=== PATIENT | female | born 1960 | race Caucasian/White ===

== ENCOUNTER 2020-08-31 15:45 | Outpatient (REF) | payer OTHER, SELFPAY | END 2020-08-31 15:46 | disposition home or self-care (01) | LOC: HO.LAB 15:45 | PROVIDERS: Visit Provider Internal Medicine | DX: Z20.828 Contact with and (suspected) exposure to other viral communicable diseases (principal) | CPT/HCPCS: C9803; U0003 ==

== ENCOUNTER 2020-11-26 09:14 | Outpatient (REF) | payer OTHER, SELFPAY | END 2020-11-26 09:15 | disposition home or self-care (01) | LOC: HO.LAB 09:14 | PROVIDERS: Visit Provider Internal Medicine | DX: Z20.822 Contact with and (suspected) exposure to COVID-19 (principal) | CPT/HCPCS: 36415; C9803; U0003; U0005 ==

== ENCOUNTER 2021-05-14 08:10 | Observation (INO) | payer OTHER, SELFPAY ==
[2021-05-14] VITALS (15 sets, daily range): BP systolic 101–120; BP diastolic 54–71; PULSE 60–83; RESP 15–20; TEMP 36.2–37.3; O2SAT 95–100; BMI 19.5
--- NOTE | ~2021-05-14 | CT_ITS ---
EXAMINATION: CT ABDOMEN AND PELVIS WITH CONTRAST CLINICAL INFORMATION: Right lower quadrant pain, nausea, vomiting. COMPARISON: CTA chest 01/21/2019. TECHNIQUE: Multidetector volumetric images were obtained from the superior aspect of the liver through the pubic symphysis following administration 85 mL of Omnipaque 350 intravenous contrast. Sagittal and coronal reformatted images were obtained on the technologist's workstation. Oral contrast: No This CT examination was performed using dose optimization techniques as appropriate, variously including the following: *Automated exposure control *Adjustment of mA and/or kV according to patient size (this includes techniques or standardized protocols for targeted exams where dose is matched to indication/reason for exam; i.e. extremities or head) *Use of iterative reconstruction technique DLP: 376 mGy-cm FINDINGS: LUNG BASES: The visualized lung bases are unremarkable. LIVER, GALLBLADDER, AND BILIARY TREE: The liver is normal in size, shape, and attenuation. No focal hepatic lesion or biliary ductal dilatation is present. The gallbladder is unremarkable with no evidence of radiopaque gallstones, gallbladder wall thickening, or obvious pericholecystic inflammatory changes. PANCREAS: There is mild fullness of the pancreatic duct, measuring 3-4 mm. The pancreas is normal in size and contour and attenuation. There is no mass or pseudocyst or peripancreatic inflammatory changes. SPLEEN: Unremarkable. ADRENAL GLANDS: Unremarkable. KIDNEYS AND URETERS: The kidneys are normal in size and smooth in contour and enhance symmetrically. There is mild bilateral fullness renal collecting system but no caliectasis or hydroureter or perinephric stranding. No visible calculi. BLADDER: Unremarkable. GASTROINTESTINAL TRACT: The appendix is distended to 1.2 cm in diameter. There is fluid in the lumen and some intraluminal high attenuation material, possibly appendicoliths. There is mild induration in the adjacent mesentery. Findings are consistent with acute appendicitis. There is no pneumatosis or free air. No ascites or fluid collection. Moderate stool is seen throughout the colon. There is no proximal obstruction. ABDOMINAL WALL: Tiny fat-containing umbilical hernia, under 2 cm. Small right inguinal hernia, 1.4 cm diameter by 4.5 cm in length. LYMPH NODES: No lymphadenopathy. VASCULAR: Unremarkable. PELVIC VISCERA: Enlarged uterus with scattered fibroids, largest 8 cm with thick circumferential peripheral calcification. Smaller fibroids anteriorly under 3 millimeters cm. OSSEOUS STRUCTURES: Pectus excavatum. No acute bony abnormality. Results are called and discussed with MARY Lundberg in the Emergency Department at [address]/CT abdomen pelvis w con IMPRESSION: 1. Acute appendicitis. No fluid collection or proximal obstruction. 2. Uterine fibroids, largest 8 cm with thick circumferential peripheral calcification. 3. Small fat-containing umbilical and right inguinal hernias. 4. Mild fullness pancreatic duct 3-4 mm. No visible mass or peripancreatic inflammatory changes. 5. Pectus excavatum.
--- NOTE | 2021-05-14 09:23 | ED.ABDPAIN ---
HPI - Abdominal Pain General Chief Complaint: Abdominal Pain Stated Complaint: abd pain Time Seen by Provider: 05/14/21 08:56 Source: patient Mode of arrival: ambulatory Limitations: no limitations History of Present Illness HPI narrative: 60-year-old female who reports that she suffers from constipation denies any other medical history presenting to the ED with complaints of right lower quadrant/suprapubic abdominal pain with associated nausea vomiting where she has had 2 episodes of emesis this morning. Her last bowel movement was 2 days ago and she reports there were small hard rocks. She denies any fevers, chills, dizziness, headaches, neck pain/stiffness, sore throat, chest pain, shortness of breath, cough, palpitations, black or bloody stools, dysuria, hematuria, radiation of the abdominal pain, diarrhea, recent travel, sick contacts or possible bad food exposure or any other symptoms complaints or concerns at this time. MD elicited complaint: abdominal pain Pertinent past history: constipation Onset (ago): day(s) (Since last night) Pain Consistency: constant Location: RLQ and suprapubic Severity: moderate Quality: aching Radiation: none Migration to: no migration Exacerbating factors: nothing Relieving factors: nothing Associated symptoms: nausea and vomiting Related Data Home Medications Medication Instructions Recorded Confirmed multivitamin-ferrous 1 tab PO DAILY 05/14/21 05/14/21 fumarate-folic acid 18 mg-400 mcg tablet (Centrum Women) psyllium husk 0.4 gram capsule 1.2 g PO DAILY 05/14/21 05/14/21 (Fiber (psyllium husk)) Allergies Allergy/AdvReac Type Severity Reaction Status Date / Time amoxicillin [AMOXICILLIN] Allergy Unknown RASH/SWELLI Verified 05/14/21 12:43 NG morphine [MORPHINE] AdvReac Severe DIZZINESS,N Verified 05/14/21 12:43 AUSEA Review of Systems Review of Systems Constitutional : No Weight loss, No Fever, No Chills, No Night Sweats, No Fatigue, NoMalaise ENT/Mouth: No ear pain, No sore throat, No Difficulty swallowing Cardiovascular : No Chest Pain, No SOB, No Dyspnea on Exertion, No Orthopnea, NoEdema, No Palpitations Respiratory : No Cough, No Sputum, No Wheezing, No Dyspnea Gastrointestinal : Positive nausea/vomiting with right lower quadrant abdominal pain/suprapubic abdominal pain and constipation, No Diarrhea, No blood streaked emesis, No coffee-ground emesis, No gross hematemesis, No blood streak stool, No gross hematochezia, No Melena Genitourinary : No irregular bleeding, No Dysuria, No Urinary Frequency, No Hematuria,No Urinary Incontinence, No Urgency, No Flank Pain Musculoskeletal : No joint pain, No Myalgias, No Joint Swelling Skin : No Skin Lesions, No rash Neuro : No Weakness, No Numbness, No Paresthesias, No Loss of Consciousness, NoDizziness, No Headache Psych : No Social Issues, Heme/Lymph: No Bruising, No Bleeding,No Lymphadenopathy Endocrine : No Polyuria, No Polydipsia, No Temperature Intolerance Yes all other systems are reviewed and are negative Physical Exam Vital Signs: Vital Signs: Last Vital Signs Temp 98.5 F 05/14/21 11:21 Pulse 69 05/14/21 11:21 Resp 18 05/14/21 11:21 BP 119/71 05/14/21 11:21 Pulse Ox 97 05/14/21 11:21 Body Mass Index 19.5 vital signs have been reviewed as normal and appeared to be correct. Blood pressure normal. Heart rate normal. Respiration rate normal. Temperature normal. Oxygen saturation normal. Appearance: Alert. Oriented X3. No acute distress. Head: Normal external exam. Normocephalic. Eyes: PERRLA. EOMI. Conjunctiva and sclera normal. Eyelids normal. ENT: Pharynx normal. Uvula midline. Moist mucous membranes. Neck: Normal inspection. Neck supple. FROM. No adenopathy. No meningeal signs. CVS: Normal heart rate and rhythm. Heart sound normal. No murmurs noted. Pulses normal throughout. Respiratory: No respiratory distress. Painless inspiration. Breath sounds normal. No wheezes/rales/rhonchi noted. Chest nontender. No accessory muscle usage noted or decreased air movement noted. Abdomen: Soft and moderate tenderness diffusely although point tenderness to right lower quadrant with guarding. Nondistended. No rigidity. Bowel sounds normal in all 4 quadrants. No distention noted. No organomegaly noted. No visible injury noted. Positive rebound tenderness. Positive Rovsing sign/obturator's sign/psoas sign. Negative Avendaño sign. Back: No CVA tenderness. Full range of motion noted. Skin: Skin warm and dry. Normal skin color. Normal skin turgor. No rashes/lesions/lacerations noted. Extremities: Extremities exhibit normal range of motion. Extremities nontender. Neuro: Oriented X 3. No motor deficit. No sensory deficit. Reflexes normal. Normal steady gait. Course Course Course Narrative: 9am - 60-year-old female who reports that she suffers from constipation denies any other medical history presenting to the ED with complaints of right lower quadrant/suprapubic abdominal pain with associated nausea vomiting where she has had 2 episodes of emesis this morning. Her last bowel movement was 2 days ago and she reports there were small hard rocks. Plan: Labs, UA, CT scan abdomen pelvis with IV contrast to evaluate for possible appendicitis versus constipation or any other acute intra-abdominal process, provide a L of IV fluids and 4 mg of Zofran. Patient declined any pain meds at this time. Then re-evaluate. Reevaluation(s) Reevaluation #1: - labs reviewed patient with an elevated white blood cell count 53596. Random glucose 119. Otherwise all other labs are within normal limits. - CT scan abdomen and pelvis revealed acute appendicitis. Nonacute findings include uterine fibroids 8 cm that the patient was aware of. Small hernia in the umbilical and inguinal area and pancreatic duct appears full no mass or changes noted. - therefore at this time I sent [facility] EMR to Dr. Mary and received not reply that he is currently in the OR - therefore will start the patient on 750 mg of Levaquin and 500 mg of Flagyl then wait to admit for acute appendicitis. Patient understands agrees this plan. Time: 10:56 MDM - Abdominal Pain Medical Records Attestation: I reviewed the patient's medical records. Lab Data Attestation: I reviewed the patient's lab results. Result diagrams: 05/14/21 09:26 05/14/21 09:26 Labs: Lab Results 05/14/21 05/14/21 05/14/21 Range/Units 09:26 09:26 09:26 WBC 11.4 H (4.8-10.8) X10*3/uL RBC 4.20 (4.20-5.50) X10*6/uL Hgb 12.7 (12.0-16.0) g/dl Hct 37.6 (37-47) % MCV 89.5 (80-98) fL MCH 30.2 (27.0-33.0) pg MCHC 33.8 (31.0-35.0) g/dl RDW 12.5 (11.0-16.0) % Plt Count 216 (160-400) X10*3/uL MPV 9.2 L (9.4-12.3) fL Immature Gran % (Auto) 0.4 (0.0-0.4) % Neut % (Auto) 89.1 H (45-73) % Lymph % (Auto) 6.4 L (20-40) % [place] % (Auto) 3.8 (2-11) % Eos % (Auto) 0.1 (0-4) % Baso % (Auto) 0.2 (0-2) % Lymph # (Auto) 0.7 L (1.2-4.9) X10*3/uL [place] # (Auto) 0.4 (0.1-1.2) X10*3/uL Eos # (Auto) 0.0 (0.0-0.4) X10*3/uL Baso # (Auto) 0.0 (0.0-0.2) X10*3/uL Abs Immat Gran (auto) 0.05 H (0.00-0.03) X10*3/uL Absolute Neuts (auto) 10.2 H (2.0-8.3) X10*3/uL Absolute Nucleated RBC 0.000 (0.0-0.012) X10*3/uL Nucleated RBC % (auto) 0.0 (0.0-0.2) /100WBC PT 11.6 (9.9-13.0) SEC INR 1.0 (0.9-1.1) Sodium 139 (135-145) mmol/L Potassium 4.0 (3.3-5.1) mmol/L Chloride 107 (96-108) mmol/L Carbon Dioxide 24 (22-29) mmol/L Anion Gap 12 (12-20) BUN 14 (9-16) mg/dL Creatinine 0.63 (0.5-1.4) mg/dL Estim Creat Clear Calc 84.9 Estimated GFR > 60 Random Glucose 119 H (60-115) mg/dL Calcium 9.3 (8.4-10.2) mg/dL Magnesium 2.1 (1.6-2.6) mg/dL Total Bilirubin 0.8 (0.0-1.0) mg/dL AST 14 (5-31) U/L ALT 14 (0-31) U/L Alkaline Phosphatase 73 (39-117) U/L Total Protein 6.6 (6.5-8.0) g/dL Albumin 4.3 (3.5-5.0) g/dL Lipase 11 (8-78) U/L Coronavirus (PCR) (Negative) Influenza Type A (PCR) (Negative) Influenza Type B (PCR) (Negative) RSV RNA Qual (PCR) (Negative) 05/14/21 Range/Units 09:38 WBC (4.8-10.8) X10*3/uL RBC (4.20-5.50) X10*6/uL Hgb (12.0-16.0) g/dl Hct (37-47) % MCV (80-98) fL MCH (27.0-33.0) pg MCHC (31.0-35.0) g/dl RDW (11.0-16.0) % Plt Count (160-400) X10*3/uL MPV (9.4-12.3) fL Immature Gran % (Auto) (0.0-0.4) % Neut % (Auto) (45-73) % Lymph % (Auto) (20-40) % [place] % (Auto) (2-11) % Eos % (Auto) (0-4) % Baso % (Auto) (0-2) % Lymph # (Auto) (1.2-4.9) X10*3/uL [place] # (Auto) (0.1-1.2) X10*3/uL Eos # (Auto) (0.0-0.4) X10*3/uL Baso # (Auto) (0.0-0.2) X10*3/uL Abs Immat Gran (auto) (0.00-0.03) X10*3/uL Absolute Neuts (auto) (2.0-8.3) X10*3/uL Absolute Nucleated RBC (0.0-0.012) X10*3/uL Nucleated RBC % (auto) (0.0-0.2) /100WBC PT (9.9-13.0) SEC INR (0.9-1.1) Sodium (135-145) mmol/L Potassium (3.3-5.1) mmol/L Chloride (96-108) mmol/L Carbon Dioxide (22-29) mmol/L Anion Gap (12-20) BUN (9-16) mg/dL Creatinine (0.5-1.4) mg/dL Estim Creat Clear Calc Estimated GFR Random Glucose (60-115) mg/dL Calcium (8.4-10.2) mg/dL Magnesium (1.6-2.6) mg/dL Total Bilirubin (0.0-1.0) mg/dL AST (5-31) U/L ALT (0-31) U/L Alkaline Phosphatase (39-117) U/L Total Protein (6.5-8.0) g/dL Albumin (3.5-5.0) g/dL Lipase (8-78) U/L Coronavirus (PCR) NEGATIVE (Negative) Influenza Type A (PCR) NEGATIVE (Negative) Influenza Type B (PCR) NEGATIVE (Negative) RSV RNA Qual (PCR) NEGATIVE (Negative) Imaging Data CT scan abdomen pelvis with IV contrast: Attestation: I personally reviewed and interpreted this imaging study as follows: Radiologist's impression: FINDINGS: LUNG BASES: The visualized lung bases are unremarkable.? LIVER, GALLBLADDER, AND BILIARY TREE: The liver is normal in size, shape, and attenuation. No focal hepatic lesion or biliary ductal dilatation is present. The gallbladder is unremarkable with no evidence of radiopaque gallstones, gallbladder wall thickening, or obvious pericholecystic inflammatory changes.? PANCREAS: There is mild fullness of the pancreatic duct, measuring 3-4 mm. The pancreas is normal in size and contour and attenuation. There is no mass or pseudocyst or peripancreatic inflammatory changes.? SPLEEN: Unremarkable.? ADRENAL GLANDS: Unremarkable.? KIDNEYS AND URETERS: The kidneys are normal in size and smooth in contour and enhance symmetrically. There is mild bilateral fullness renal collecting system but no caliectasis or hydroureter or perinephric stranding. No visible calculi.? BLADDER: Unremarkable.? GASTROINTESTINAL TRACT: The appendix is distended to 1.2 cm in diameter. There is fluid in the lumen and some intraluminal high attenuation material, possibly appendicoliths. There is mild induration in the adjacent mesentery. Findings are consistent with acute appendicitis. There is no pneumatosis or free air. No ascites or fluid collection. Moderate stool is seen throughout the colon. There is no proximal obstruction.? ABDOMINAL WALL: Tiny fat-containing umbilical hernia, under 2 cm. Small right inguinal hernia, 1.4 cm diameter by 4.5 cm in length.? LYMPH NODES: No lymphadenopathy. VASCULAR: Unremarkable. PELVIC VISCERA: Enlarged uterus with scattered fibroids, largest 8 cm with thick circumferential peripheral calcification. Smaller fibroids anteriorly under 3 millimeters cm.? OSSEOUS STRUCTURES: Pectus excavatum. No acute bony abnormality. Results are called and discussed with MARY Lundberg in the Emergency Department at 1049 hours.? CT/CT abdomen pelvis w con IMPRESSION: 1. Acute appendicitis. No fluid collection or proximal obstruction. 2. Uterine fibroids, largest 8 cm with thick circumferential peripheral calcification. 3. Small fat-containing umbilical and right inguinal hernias. 4. Mild fullness pancreatic duct 3-4 mm. No visible mass or peripancreatic inflammatory changes. 5. Pectus excavatum. Critical Care Time Critical Care Time Critical Care Time: Yes Total Critical Care Time: 60 Attestation: I personally attest to this time spent taking care of the patient Discharge Plan Discharge Clinical Impression: Acute appendicitis, Fibroid, uterine, Hernia, umbilical, Inguinal hernia, Pectus excavatum Patient Disposition: Admitted As Inpatient Interventions: Admission Worksheet (ED) Last Done: 05/14/21 12:36 [facility] Past Medical History Attestation statement: The following information was validated with the patient. Medical History (Updated 05/14/21 @ 11:35 by MARY Lundberg) Encounter for colonoscopy following colon polyp removal Normal colonoscopy Surgical History (Updated 05/14/21 @ 12:22 by Hamilton Mary MD) History of colon resection Social History Social History Alcohol intake: never Patient Tobacco Use Status: Never used Tobacco Use of substances other than those prescribed or required for medical reasons: No Advance Directives: No Advance Directives Information Provided: No Patient : No
[2021-05-14 09:30] LABS: MANUAL DIFF FLAG NO
[2021-05-14] MEDS: 0.9 % Sodium Chloride 1,000 ML 999 ML IVCONT (09:30)
[2021-05-14] MEDS: ondansetron HCL 4 MG/2 ML VIAL IVPUSH ×2 (09:30→11:03)
[2021-05-14 09:35] LABS: Basophils Percent Auto 0.2 % (0-2); Eosinophils Percent Auto 0.1 % (0-4); Hematocrit 37.6 % (37-47); Hemoglobin 12.7 g/dl (12.0-16.0); Imm Gran Abs Auto 0.05 X10*3/uL (0.00-0.03); Imm Gran Pct Auto 0.4 % (0.0-0.4); Lymphocytes Absolute Auto 0.7 X10*3/uL (1.2-4.9); Lymphocytes Percent Auto 6.4 % (20-40); Mean Corpuscular HGB Conc 33.8 g/dl (31.0-35.0); Mean Corpuscular Hemoglobin 30.2 pg (27.0-33.0); Mean Corpuscular Volume 89.5 fL (80-98); Mean Platelet Volume 9.2 fL (9.4-12.3); Monocytes Absolute Auto 0.4 X10*3/uL (0.1-1.2); Monocytes Percent Auto 3.8 % (2-11); Neutrophils Absolute Auto 10.2 X10*3/uL (2.0-8.3); Neutrophils Percent Auto 89.1 % (45-73); Platelet Count 216 X10*3/uL (160-400); Red Cell Distribution Width 12.5 % (11.0-16.0); White Blood Count 11.4 X10*3/uL (4.8-10.8)
[2021-05-14 09:38] LABS: Prothrombin Time 11.6 SEC (9.9-13.0)
[2021-05-14 10:02] LABS: Alanine Aminotransferase 14 U/L (0-31); Albumin Level 4.3 g/dL (3.5-5.0); Alkaline Phosphatase 73 U/L (39-117); Anion Gap 12 (12-20); Aspartate Amino Transferase 14 U/L (5-31); Bilirubin Total 0.8 mg/dL (0.0-1.0); Blood Urea Nitrogen 14 mg/dL (9-16); Calcium 9.3 mg/dL (8.4-10.2); Carbon Dioxide 24 mmol/L (22-29); Chloride 107 mmol/L (96-108); Creatinine Clr Calc Pharmacy 84.9; Estimated Glomerular Filt Rate > 60; Glucose Random 119 mg/dL (60-115); Lipase 11 U/L (8-78); Magnesium 2.1 mg/dL (1.6-2.6); Sodium 139 mmol/L (135-145); Total Protein 6.6 g/dL (6.5-8.0)
[2021-05-14] MEDS: iohexoL 350 MG/ML 100 ML INFUS..BTL IV (10:26)
[2021-05-14 10:35] LABS: Influenza A PCR NEGATIVE (Negative); Influenza B PCR NEGATIVE (Negative); Resp Syncy Virus RNA Qual PCR NEGATIVE (Negative); SARS COV2 PCR INHOUSE NEGATIVE (Negative)
[2021-05-14] MEDS: HYDROmorphone HCl 0.5 MG/0.5 ML SYRINGE IVPUSH (11:03)
[2021-05-14] MEDS: levoFLOXacin/D5W 750 MG/150 ML PIGGYBACK 100 MG IV (11:17)
--- NOTE | 2021-05-14 11:21 | PHA.MEDREC ---
Pharmacy Consult ? Medication Reconciliation Pharmacy has completed the medication reconciliation. Patient states that she doesn't take any prescription medications. She only takes tylenol PM occasionally, while taking Centrum and 3 Fiber capsules daily. Esthela Maldonado, PharmD [phone]
--- NOTE | 2021-05-14 12:20 | P.HPGS_ITS ---
History of Present Illness History of Present Illness Date of Service: 05/15/21 Chief complaint: Acute appendicitis Narrative: Atiya Choe is a 60 year old female who came to the emergency room this morning because of abdominal pain. She said this started about very early this morning after midnight. This started as low intensity. But persisted and seemed to have worsened. She therefore came to the emergency room. She says the pain was initially mostly on the area around the umbilicus but now has been on the right lower quadrant. She describes a little bit of nausea. She says she had some diffuse abdominal pain about 3 weeks ago as well which lasted for about 2-3 hours but had resolved with a bowel movement. She also had some colon resection likely the sigmoid, about 3 years ago in [place], for what she described as a large polyp which was not a cancer. She says she continues to have some pain now on the right lower quadrant. Review of Systems Constitutional: Constitutional: Denies chills and Denies fever(s) Cardiovascular: Cardiovascular: Denies chest pain, Denies dyspnea and Denies dyspnea on exertion Respiratory: Respiratory: Denies cough, Denies dyspnea and Denies dyspnea on exertion Gastrointestinal: Gastrointestinal: Reports abdominal pain, Denies hematochezia and Denies change in bowel habits Genitourinary: Genitourinary: Denies hematuria Musculoskeletal: Musculoskeletal: Denies back pain and Denies limited range of motion Neurologic: Denies focal weakness and Denies convulsions Psychiatric: Psychiatric: Denies depression and Denies mood swings PMFSH Past Medical History Medical History (Updated 05/14/21 @ 11:35 by MARY Lundberg) Encounter for colonoscopy following colon polyp removal Normal colonoscopy Surgical History Surgical History (Updated 05/14/21 @ 12:22 by Hamilton Mary MD) History of colon resection Social History Social History Household Members: Spouse Housing: House Do you presently have visiting nurse or other home services: No Alcohol intake: never Patient Tobacco Use Status: Former Tobacco user Quit Date: 2010 Tobacco use type: Cigarette Second Hand Smoke Exposure: No Substance Use Type: Marijuana service: No Current occupational status: employed Meds Allergies Allergy/AdvReac Type Severity Reaction Status Date / Time amoxicillin [AMOXICILLIN] Allergy Unknown RASH/SWELLI Verified 05/14/21 12:43 NG morphine [MORPHINE] AdvReac Severe DIZZINESS,N Verified 05/14/21 12:43 AUSEA Active Medications: Current Medications Generic Name Dose Route Start Last Admin Trade Name Maykel PRN Reason Stop Dose Admin Levofloxacin 750 mg in 150 mls @ 100 mls/hr 05/14/21 10:55 05/14/21 11:17 Levaquin IV 05/14/21 12:24 100 mls/hr ONCE ONE Administration Pharmacy Consult 1 each 05/14/21 10:50 Consult Rx Perform Med Rec MISCELLANE ONCE PRN Consult order Home Medications Medication Instructions Recorded Confirmed Last Taken Type multivitamin-ferrous 1 tab PO DAILY 05/14/21 05/14/21 Unknown History fumarate-folic acid 18 mg-400 mcg tablet (Centrum Women) psyllium husk 0.4 gram capsule 1.2 g PO DAILY 05/14/21 05/14/21 Unknown History (Fiber (psyllium husk)) Physical Exam Vital Signs: Vital Signs: Last Vital Signs Temp 98.5 F 05/14/21 11:21 Pulse 69 05/14/21 11:21 Resp 18 05/14/21 11:21 BP 119/71 05/14/21 11:21 Pulse Ox 97 05/14/21 11:21 Body Mass Index 19.5 Const: General: comfortable and no acute distress Orientation/consciousness: patient oriented x3 Neck: Neck: Yes no lymphadenopathy Resp: Auscultation: clear to auscultation bilaterally Cardio: Rhythm: regular rhythm GI: Palpation (GI): Soft to palpation, Tenderness to palpation present (GI) (Tender in right lower quadrant, mild guarding, no rebound) and Guarding due to palpation present (GI) Neuro: General: patient oriented x3 Results Results Labs: Short CBC 05/14/21 Range/Units 09:26 WBC 11.4 H (4.8-10.8) X10*3/uL Hgb 12.7 (12.0-16.0) g/dl Hct 37.6 (37-47) % Plt Count 216 (160-400) X10*3/uL BMP 05/14/21 09:26 Sodium 139 Potassium 4.0 Chloride 107 Carbon Dioxide 24 BUN 14 Creatinine 0.63 Calcium 9.3 Liver Function 05/14/21 Range/Units 09:26 Total Bilirubin 0.8 (0.0-1.0) mg/dL AST 14 (5-31) U/L ALT 14 (0-31) U/L Alkaline Phosphatase 73 (39-117) U/L Albumin 4.3 (3.5-5.0) g/dL Abdomen CT scan report/results: report reviewed and image reviewed CT scan - pelvis: report reviewed and image reviewed Assessment and Plan (1) Acute appendicitis: Status: Acute 60-year-old female, who came to the emergency room this morning because of right lower quadrant pain. I have reviewed her CAT scan with the radiologist and the appendix appears indurated and inflamed, with an appendicolith. Findings are consistent with acute appendicitis. I explained to the patient the option of proceeding with appendectomy. I discussed the technique of laparoscopic appendectomy with possible conversion to open. I reviewed the risks including but not limited to bleeding, infections, injury to the bowel, injury to the urinary tract, abscesses, inherent risks of anesthesia, as well as the benefits and alternatives. She understands the option of proceeding with IV antibiotic treatment. She wants to proceed with appendectomy. We will have her put on the add on schedule now for laparoscopic appendectomy, possible open appendectomy. Quality Stroke Does the patient have a stroke diagnosis?: No VTE Prior VTE?: No VTE Risk Level:: Medical - moderate - high VTE Device Contraindication: N/A - Device Ordered VTE Drug Contraindication: N/A - Med Ordered Procedures Date of Service Date of Service: 05/14/21
--- NOTE | 2021-05-14 12:46 | P.CONAN_ITS ---
[facility] Active Problems Active Problems: All Active Problems (Updated 05/14/21 @ 11:35 by MARY Lundberg) History of colon resection (Acute) Acute appendicitis (Acute) Fibroid, uterine (Acute) Hernia, umbilical (Acute) Inguinal hernia (Acute) Pectus excavatum (Acute) Past Medical History Medical History (Updated 05/14/21 @ 11:35 by MARY Lundberg) Encounter for colonoscopy following colon polyp removal Normal colonoscopy Surgical History Surgical History (Updated 05/14/21 @ 12:22 by Hamilton Mary MD) History of colon resection Social History Social History Alcohol intake: never Patient Tobacco Use Status: Never used Tobacco Second Hand Smoke Exposure: No Use of substances other than those prescribed or required for medical reasons: Yes Substance Use Frequency: Occasionally Are you DNR?: No Advance Directives: No Advance Directives Information Provided: No Patient : No Meds Allergies Allergy/AdvReac Type Severity Reaction Status Date / Time amoxicillin [AMOXICILLIN] Allergy Unknown RASH/SWELLI Verified 05/14/21 12:43 NG morphine [MORPHINE] AdvReac Severe DIZZINESS,N Verified 05/14/21 12:43 AUSEA Active Medications: Current Medications Generic Name Dose Route Start Last Admin Trade Name Freq PRN Reason Stop Dose Admin Pharmacy Consult 1 each 05/14/21 10:50 Consult Rx Perform Med Rec MISCELLANE ONCE PRN Consult order Sodium Chloride 3 ml 05/14/21 16:00 0.9 % Sodium Chloride Flush [facility] Home Medications Medication Instructions Recorded Confirmed Last Taken Type multivitamin-ferrous 1 tab PO DAILY 05/14/21 05/14/21 Unknown History fumarate-folic acid 18 mg-400 mcg tablet (Centrum Women) psyllium husk 0.4 gram capsule 1.2 g PO DAILY 05/14/21 05/14/21 Unknown History (Fiber (psyllium husk)) Exam Exam Date and Time: May 14, 2021 1246 Height,Weight and Vital Signs: Height 5 ft 7 in Weight 56.699 kg Last Vital Signs Temp 98.5 F 05/14/21 11:21 Pulse 69 05/14/21 11:21 Resp 18 05/14/21 11:21 BP 119/71 05/14/21 11:21 Pulse Ox 97 05/14/21 11:21 Pertinent Lab Results Pertinent Lab Results: Laboratory Tests 05/14/21 05/14/21 05/14/21 09:26 09:26 09:26 WBC 11.4 H RBC 4.20 Hgb 12.7 Hct 37.6 MCV 89.5 MCH 30.2 MCHC 33.8 RDW 12.5 Plt Count 216 MPV 9.2 L Immature Gran % (Auto) 0.4 Neut % (Auto) 89.1 H Lymph % (Auto) 6.4 L [place] % (Auto) 3.8 Eos % (Auto) 0.1 Baso % (Auto) 0.2 Lymph # (Auto) 0.7 L [place] # (Auto) 0.4 Eos # (Auto) 0.0 Baso # (Auto) 0.0 Abs Immat Gran (auto) 0.05 H Absolute Neuts (auto) 10.2 H Absolute Nucleated RBC 0.000 Nucleated RBC % (auto) 0.0 PT 11.6 INR 1.0 Sodium 139 Potassium 4.0 Chloride 107 Carbon Dioxide 24 Anion Gap 12 BUN 14 Creatinine 0.63 Estim Creat Clear Calc 84.9 Estimated GFR > 60 Random Glucose 119 H Calcium 9.3 Magnesium 2.1 Total Bilirubin 0.8 AST 14 ALT 14 Alkaline Phosphatase 73 Total Protein 6.6 Albumin 4.3 Lipase 11 Coronavirus (PCR) Influenza Type A (PCR) Influenza Type B (PCR) RSV RNA Qual (PCR) 05/14/21 09:38 WBC RBC Hgb Hct MCV MCH MCHC RDW Plt Count MPV Immature Gran % (Auto) Neut % (Auto) Lymph % (Auto) [place] % (Auto) Eos % (Auto) Baso % (Auto) Lymph # (Auto) [place] # (Auto) Eos # (Auto) Baso # (Auto) Abs Immat Gran (auto) Absolute Neuts (auto) Absolute Nucleated RBC Nucleated RBC % (auto) PT INR Sodium Potassium Chloride Carbon Dioxide Anion Gap BUN Creatinine Estim Creat Clear Calc Estimated GFR Random Glucose Calcium Magnesium Total Bilirubin AST ALT Alkaline Phosphatase Total Protein Albumin Lipase Coronavirus (PCR) NEGATIVE Influenza Type A (PCR) NEGATIVE Influenza Type B (PCR) NEGATIVE RSV RNA Qual (PCR) NEGATIVE Airway Mallampati Class: II TM Dist: >3cm Neck ROM: Full
[2021-05-14] MEDS: Lactated Ringers 1,000 ML 100 ML IVCONT (12:52)
--- NOTE | 2021-05-14 13:52 | P.OP_ITS ---
Operative Note Operative Note Date of Service: 05/14/21 Narrative: Preop diagnosis: Acute appendicitis Postop diagnosis: Acute appendicitis, with a very erythematous and indurated appendix Procedure: Laparoscopic appendectomy Surgeon: Hamilton Mary MD assistant boys track coach: MARY Monteiro The patient is a 60-year-old female who came to the emergency room this morning because of right lower quadrant pain. He had a CAT scan did show findings consistent with acute appendicitis. I reviewed the images with the radiologist. I discussed with the patient the option of proceeding with laparoscopic appendectomy. I reviewed the risks including but not limited to bleeding, infe ctions, bowel injury, staple line leak, as well as benefits and alternatives. She wanted to proceed with appendectomy She was brought to the operating room. She was placed supine under general anes thesia via endotracheal tube. A Rodriguez catheter was placed. The left arm was tucked close to the dorsal The abdomen is prepped and draped in the usual sterile fashion. A surgical time-out was done. The patient had received a scheduled antibiotic in the ER prior to surgery I made a short incision in the infraumbilical margin using a blade 15. And this was carried down through the full-thickness skin subcutaneous fat down to the fascia. The fascia was incised. The peritoneum was entered. Through this incision a Matthew port was introduced. Pneumoperitoneum was introduced to a pressure of 15 mm hg. From here on the rest of the procedure was done under vision with the laparoscope. With laparoscopic visualization, I positioned 5 mm ports in the left lower quadrant as well as in the suprapubic margin through small stab incisions. Graspers were placed through these working ports. The patient was placed in head-down and [id number] position. Examination of the right lower quadrant showed the appendix was markedly indurated and erythematous. There was note of a little bit of murky fluid at the gutter surrounding the appendix. I was able to retract the appendix with a grasper on its mid segment to put the proximal 3rd on stretch. By doing so was able to visualize the base of the appendix. The distal 2/3 of the appendix is markedly swollen and inflamed. The base was however minimally inflamed. I therefore proceeded to do gentle dissection of the base of the appendix to create a mesenteric window using the [place] dissector. Once this was achieved, I positioned an Endo-HALLIE 30 stapler across the base of the appendix. This was fired. The staple line appeared intact. I then carefully divided the attached mesoappendix using a LigaSure to completely the appendix. The appendix was retrieved through an endobag through the umbilical incision. I reinserted all ports and re- insufflated Examined the area of the stump and this was hemostatic. I observed all 4 quadrants and there was no other pathology. There was no evidence of any bowel injury. Once hemostasis was confirmed, I proceeded to desufflate the port sites. I removed all ports under vision with the laparoscope. The Matthew port was removed last The fascia of the umbilical incision was closed with a Dexon 0 stitch. Skin closure was achieved on all incisions using Dexon 4-0 subcuticular sutures. Steri-Strips and dressings were applied. All incisions were infiltrated with Marcaine 0.5% for postop analgesia. The procedure was then completed. The patient tolerated procedure well. There were no complication noted. Initial and final counts of sponges and instruments were correct. Estimated blood loss was about 10 cc The patient was extubated without difficulty and transferred to the recovery room with stable vital signs.
--- NOTE | 2021-05-14 13:59 | PM.OP ---
Brief Operative Note Date of Service: 05/14/21 Pre-op diagnosis: Acute appendicitis Procedure: Laparoscopic appendectomy Surgeon: Hamilton Mary MD Anesthesia: GETA Was an Pediatric Physical Therapy Assistant used for this Procedure?: No Pediatric Physical Therapy Assistant: Uzma Monteiro Estimated blood loss (mL): 5 Pathology: other (Appendix) Condition: stable Disposition: PACU
--- NOTE | 2021-05-14 16:09 | PM.EVENT ---
Event Note Date of Service: 05/14/21 Event Note: Patient seen postoperatively She underwent uneventful laparoscopic appendectomy earlier this afternoon She appears comfortable with good pain control She has stable vital signs Abdomen is soft Continue pain management IV fluids Likely to DC home tomorrow morning
[2021-05-14] MEDS: Lactated Ringers 1,000 ML 80 ML IVCONT (16:17)
[2021-05-14] MEDS: Acetaminophen 325 MG TABLET 650 MG PO (23:05)
[2021-05-15] VITALS: BP 102/54; PULSE 62; RESP 15; TEMP 36.8; O2SAT 97
[2021-05-15 03:14] VITALS: BP 107/59; PULSE 70; RESP 15; TEMP 36.7; O2SAT 98
[2021-05-15] MEDS: Lactated Ringers 1,000 ML 80 ML IVCONT (05:27)
[2021-05-15 07:53] VITALS: BP 117/70; PULSE 69; RESP 18; TEMP 36.6; O2SAT 98
--- NOTE | 2021-05-15 08:13 | PM.PNGS ---
Subjective Subjective Date of Service: 05/15/21 Interval history: Feels well Pain incisions on the with use of abdominal wall muscles Good GI function Physical Exam Vital Signs: Vital Signs: Last Vital Signs Temp 97.9 F 05/15/21 07:53 Pulse 69 05/15/21 07:53 Resp 18 05/15/21 07:53 BP 117/70 05/15/21 07:53 Pulse Ox 98 05/15/21 07:53 Body Mass Index 19.5 Const: General: comfortable and no acute distress Resp: Effort & Inspection: normal respiratory effort Cardio: Rate: regular rate GI: Other: Soft, dressings dry, no guarding or rebound Procedures Date of Service Date of Service: 05/15/21 Progress Note: A&P Assessment and plan (1) Acute appendicitis: Status: Acute Assessment and Plan: Status post laparoscopic appendectomy Doing well postoperatively Good pain control Stable overnight Looks well Good GI function Says she is ready to go home Okay to DC home today Instructions given to the patient Follow-up in the office Fall Risk Details Current Medications: Current Medications Generic Name Dose Route Start Last Admin Trade Name Fcoq PRN Reason Stop Dose Admin Acetaminophen 650 mg 05/14/21 16:09 05/14/21 23:05 Acetaminophen 325 Mg Tablet PO 650 mg Q6H PRN Administration Fever Docusate Sodium 100 mg 05/14/21 16:09 Docusate Sodium 100 Mg Capsule PO BID PRN constipation Hydromorphone HCl 0.25 mg 05/14/21 16:09 Hydromorphone Hcl 0.5 Mg/0.5 Ml Syringe IVPUSH Q4H PRN Pain, Severe (Pain Scale 7-10) Protocol Lactated Ringer's 1,000 mls @ 80 mls/hr 05/14/21 16:09 05/15/21 05:27 Lr IVCONT 80 mls/hr .[id number] EDWIN Administration Ondansetron HCl 4 mg 05/14/21 16:09 Ondansetron Hcl 4 Mg/2 Ml Vial IVPUSH Q8H PRN Nausea and Vomiting Oxycodone HCl 5 mg 05/14/21 16:09 Oxycodone Hcl Immed Release 5 Mg Tablet PO Q4H PRN Pain, Moderate (Pain Scale 4-6 Pharmacy Consult 1 each 05/14/21 10:50 Consult Rx Perform Med Rec MISCELLANE ONCE PRN Consult order Sodium Chloride 3 ml 05/14/21 16:00 05/15/21 01:46 0.9 % Sodium Chloride Flush 3 Ml Syringe IVFLUSH Not Given QSHIFT EDWIN Time Spent With Patient Time: Total time spent is greater than 50% in coordination of care (as documented) at patient's floor/unit and/or counseling patient: Time with patient: 15 - 24 minutes Quality Stroke Does the patient have a stroke diagnosis?: No VTE Prior VTE?: No VTE Risk Level:: Surgical - moderate VTE Device Contraindication: N/A - Device Ordered VTE Drug Contraindication: N/A - Med Ordered
--- NOTE | 2021-05-15 09:20 | MHC.CM.PN ---
CM MET WITH PT WHO REPORTS SHE LIVES AT HOME WITH HER AND TWO ADULT CHILDREN. PT DENIES USE OF DME OR HOME/COMMUNITY SERVICES. PT DOES NOT HAVE A HCP AND DECLINES TO COMPLETE ONE TODAY. PT REPORTS HER CURRENT PCP IS TO[facility] HERNANDEZ HOWEVER SHE IS GOING TO BE MOVING TO A DIFFERENT OFFICE SO PT WILL SOON BE ASSIGNED A NEW PCP AT [facility] IN [place]. OBSERVATION NOTICE WAS DELIVERED PT IS CLEARED TO CT HOME TODAY WITH NO SERVICES PTS FAMILY WILL PROVIDE TRANSPORTATION
--- NOTE | 2021-05-15 09:23 | HO.POSTANES ---
Post Anesthesia Evaluation Post Anesthesia Evaluation Vital Signs: Vital Signs Temp Pulse Resp BP Pulse Ox 05/15/21 07:53 97.9 F 69 18 117/70 98 05/15/21 03:14 98.1 F 70 15 107/59 L 98 05/15/21 00:00 98.2 F 62 15 102/54 L 97 05/14/21 23:23 98.2 F 62 15 102/54 L 97 Anesthesia: General Endotracheal-GETA Mental Status: Awake Pain Control: Satisfactory Nausea/Vomiting: None Hydration: Adequate Anesthesia-Related Issues: No Anes. Related Issues
--- NOTE | 2021-05-15 11:25 | PM.DS ---
DS: Providers Provider Date of Service: 05/15/21 Date of admission: 05/14/21 12:25 Primary care physician: Aleida Sebastian MD Attending physician on admission: Hamilton Mary DS: Diagnosis Discharge Diagnosis (1) Acute appendicitis: Status: Acute DS: Medications Discharge Medications Home Medications: Home Medications Medication Instructions Recorded Confirmed multivitamin-ferrous 1 tab PO DAILY 05/14/21 05/14/21 fumarate-folic acid 18 mg-400 mcg tablet (Centrum Women) psyllium husk 0.4 gram capsule 1.2 g PO DAILY 05/14/21 05/14/21 (Fiber (psyllium husk)) Previous Rx's Medication Instructions Recorded ibuprofen 600 mg tablet 600 mg PO Q6H PRN #30 tab 05/15/21 oxycodone-acetaminophen 5 mg-325 1 tab PO Q4-6H PRN #25 tab 05/15/21 mg tablet (Percocet) DS: Summary Hospital Course Hospital Course: BRIEF HPI: Atiya Choe is a 60 year old female who came to the emergency room because of abdominal pain.? She said this started about very early this morning after midnight.? This started as low intensity but persisted and seemed to have worsened.? She therefore came to the emergency room. She says the pain was initially mostly around the umbilicus but now has been localized to the right lower quadrant.? She describes a little bit of nausea. She says she had some diffuse abdominal pain about 3 weeks ago as well which lasted for about 2-3 hours but had resolved with a bowel movement. She also had acolon resection, about 3 years ago in [place], for what she described as a large polyp which was not a cancer. HOSPITAL COURSE: She was admitted to the surgical service for further treatment of acute appendicitis. Treatment options were reviewed and she elected to proceed with appendectomy. On 05/14/21, a laparoscopic appendectomy was performed by Dr. Mary without complication. The patient tolerated the procedure well and was transferred to PACU for recovery. She stayed overnight for observation on the medical/surgical floor. The patient had an uncomplicated recovery course. On POD #1, the patient felt well with good pain control and was tolerating a solid diet. She was OOB and ambulating. Her abdomen was benign with appropriate post op tenderness and dressings c/d/i. She felt ready for discharge. She was discharged to home on 05/15/21 in stable condition. Status at Discharge Functional status at discharge: independent ambulation Overall status at discharge: patient is progressing back to baseline Time Spent with Patient Time attestation: Total time spent providing and/or coordinating discharge services: Discharge coordination time: Less than 30 minutes Quality: Stroke Does the patient have a stroke diagnosis?: No Physical Exam Vital Signs: Vital Signs: Last Vital Signs Temp 97.9 F 05/15/21 07:53 Pulse 69 05/15/21 07:53 Resp 18 05/15/21 07:53 BP 117/70 05/15/21 07:53 Pulse Ox 98 05/15/21 07:53 Body Mass Index 19.5 Const: General: comfortable and no acute distress Orientation/consciousness: patient oriented x3 Resp: Effort & Inspection: normal respiratory effort GI: Inspection: No distended and Yes incision (dressings c/d/i) Palpation (GI): Soft to palpation, Tenderness to palpation present (GI) (mild, incisional), no guarding and not rigid Skin: General skin exam: no rashes or lesions noted Neuro: General: patient oriented x3 Extrem: General: Yes no clubbing, cyanosis or edema DS: Data Data Completed and Pending Pending studies at discharge: Pending at discharge 05/14/21 14:45 Surgical [PTH] Routine Discharge Plan Discharge Patient Disposition: Home, Self-Care Discharge Diagnosis: acute appendicitis Referrals: Hamilton Mary MD [Physician] - 2 Weeks Aleida Sebastian MD [Primary Care Provider] - 1 Week Discharge Medications: New oxycodone-acetaminophen [Percocet] 5-325 mg tablet 1 tab PO Q4-6H PRN (Reason: pain) Qty: 25 RF: 0 ibuprofen 600 mg tablet 600 mg PO Q6H PRN (Reason: pain) Qty: 30 RF: 0 Continued Centrum Women 18-400 mg-mcg Tablet 1 tab PO DAILY RF: 0 psyllium husk [Fiber (psyllium husk)] 0.4 gram Capsule 1.2 g PO DAILY RF: 0 Discharge Orders: Discharge Order (Routine); Ordered 05/15/21 Ordered By: Hamilton Mary Diet: advance to usual diet Activity on Discharge: No heavy lifting Stand Alone Forms: Patient Portal Discharge page Activity Restrictions/Additional Instructions: If the incision area is tender, you may apply an ice pack for short intervals (No more than 20 minutes on, followed by at least 20 minutes off). Do not apply heat. Do not use creams, lotions, or topical antibiotics unless instructed to do so by your surgeon. These can cause infection or allergic reaction. Ok to shower 24 hours after your surgery. Remove bandaids in 2 days and replace. You have steri strips (small white cloth strips) covering your incision- these will fall off ~1 week. No heavy lifting (>10-20lbs)! Call Your Doctor If: -Your temperature exceeds 101.5? F -You experience excessive pain or swelling -You have an unexpected reaction to medication -You have excessive bleeding -You experience continued vomiting/nausea -Your incision begins to separate -Your incision shows signs of infection such as increased redness, swelling, excessive pain, drainage (light blood or clear fluid is normal) or heat Care Plan Goals: Return to baseline health and gradual return to activity following recovery period. Health Concerns: Acute appendicitis s/p lap appy Plan of Treatment: Discharge to home, gradual return to activity, f/u in office. Assessment: 60 year old female admitted with acute appendicitis s/p lap appy. She had an uncomplicated recovery course and is stable for discharge to home. Discharge Date/Time: 05/15/21 12:00
== END 2021-05-15 12:00 | disposition home or self-care (01) ==
LOC: HO.ED 12:09 → HO.EDOVER 13:21 → HO.S3 14:59
PROVIDERS: Physician Assistant Medical; Admitting Provider Surgery; Emergency Provider Emergency Medicine; PCP Internal Medicine; Visit Provider Surgery
PROC: 0DTJ4ZZ Resection of Appendix, Percutaneous Endoscopic Approach (ICD-10-PCS; CPT 44970; principal; 2021-05-14 13:00)
DX: K35.80 Unspecified acute appendicitis (principal); D25.9 Leiomyoma of uterus, unspecified; K42.9 Umbilical hernia without obstruction or gangrene; Q67.6 Pectus excavatum
CPT/HCPCS: 44970; 0241U; 36415; 74177; 80053; 83690; 83735; 85025; 85610; 88304; 96361; 96365; 96375; 96376; 99024; 99218; 99285; 99291; J1100; J1170; J1885; J1956; J2405; J3010; Q9967

== ENCOUNTER → 2021-05-29 13:54 | Outpatient (BNVA) | payer OTHER, SELFPAY | PROVIDERS: PCP Internal Medicine; Visit Provider Surgery ==

== ENCOUNTER 2021-06-25 15:11 | Outpatient (REF) | payer OTHER, SELFPAY | END 2021-06-25 15:12 | disposition home or self-care (01) | LOC: HO.LAB 15:11 | PROVIDERS: PCP Internal Medicine; Visit Provider Internal Medicine | DX: Z20.822 Contact with and (suspected) exposure to COVID-19 (principal) | CPT/HCPCS: C9803; U0003; U0005 ==

== ENCOUNTER 2021-08-29 15:22 | Outpatient (REF) | payer OTHER, SELFPAY ==
[2021-08-29 15:47] LABS: COVID-19 Test Negative (Negative); IDNOW Serial# 16C4AD1C
== END 2021-08-29 15:23 | disposition home or self-care (01) ==
LOC: HO.LAB 15:22
PROVIDERS: Visit Provider Internal Medicine
DX: Z20.822 Contact with and (suspected) exposure to COVID-19 (principal)
CPT/HCPCS: 36415; 87635; C9803

== ENCOUNTER 2022-06-12 12:38 | Outpatient (REF) | payer OTHER, SELFPAY ==
[2022-06-12 13:25] LABS: COVID-19 Test Negative (Negative); IDNOW Serial# 16C4AD1C
== END 2022-06-12 12:39 | disposition home or self-care (01) ==
LOC: HO.LAB 12:38
PROVIDERS: Visit Provider Internal Medicine
DX: Z20.822 Contact with and (suspected) exposure to COVID-19 (principal)
CPT/HCPCS: 87635; C9803